=== PATIENT | female | born 1995 | race Caucasian/White ===

== ENCOUNTER 2020-03-14 14:44 | Emergency (ER) | payer OTHER ==
[~2020-03-14] VITALS: Ht 157.5 cm; Wt 53.5 kg
[2020-03-14] MEDS ORDERED: IBUP-1953 PO (15:01)
[2020-03-14 15:14] LABS: *BLOOD, URINE NEGATIVE (NEGATIVE); *CLARITY,URINE SLIGHTLY CLOUDY (CLEAR); *COLOR,URINE YELLOW (YELLOW); *KETONES,URINE 3+ (NEGATIVE); *UROBILINOGEN,URINE 0.2 E.U./dl (NORMAL); LEUKOCYTE ESTERASE ,URINE 1+ (NEGATIVE); NITRITE, URINE NEGATIVE (NEGATIVE); UGLUCOSE NEGATIVE (NEGATIVE)
[2020-03-14 15:16] LABS: *URINE HCG, QUAL NEG (NEGATIVE)
[2020-03-14 15:17] LABS: *BILIRUBIN,URIN 1+ (NEGATIVE)
[2020-03-14] MEDS ORDERED: HYDROCODONE/APAP 5-325MG TABLET PO ONE (15:45)
[2020-03-14] MEDS ORDERED: IV NORMAL SALINE 1000 ML BAG IV ONE (15:45)
[2020-03-14 15:46] LABS: BASOPHILS % (AUTO) 0.5 % (0.0-2.0); EOSINOPHILS % (AUTO) 0.5 % (0.0-7.0); HEMATOCRIT 38.4 % (31.2-41.9); HEMOGLOBIN 13.2 g/dL (10.9-14.3); LYMPHOCYTES # (AUTO) 1.5 K/uL (20.0-40.0); LYMPHOCYTES % (AUTO) 18.2 % (20.5-51.5); MEAN CORPUSCULAR HEMOGLOBIN 31.7 uug (24.7-32.8); MEAN CORPUSCULAR HGB CONC 35 g/dL (32.3-35.6); MEAN CORPUSCULAR VOLUME 91.7 fL (75.5-95.3); MONOCYTES # (AUTO) 0.7 K/uL (2.0-10.0); NEUTROPHILS # (AUTO) 5.9 K/uL (1.8-8.9); NEUTROPHILS % (AUTO) 71.8 % (38.5-71.5); PLATELET COUNT (AUTO) 281 K/uL (179-408); RED BLOOD CELL COUNT(AUTO) 4.18 MIL/uL (3.63-4.92); WHITE BLOOD COUNT (AUTO) 8.2 K/uL (3.8-11.8)
[2020-03-14 15:47] LABS: CARBON DIOXIDE 23 mmol/L (21-32); CHLORIDE 99 mmol/L (98-107); GLUCOSE 79 mg/dL (74-106); POTASSIUM 3.6 mmol/L (3.5-5.1); UREA NITROGEN, BLOOD 11 mg/dL (7-18)
[2020-03-14] MEDS ORDERED: HYDROCODONE/APAP 5-325MG TABLET ONE (16:25)
[2020-03-14] MEDS ORDERED: CEFTRIAXONE 500 MG VIAL IM ONE (17:00)
[2020-03-14] MEDS ORDERED: AZITHROMYCIN 250 MG TABLET PO ONE (17:00)
[2020-03-14] MEDS ORDERED: LIDOCAINE HCL 1% 20 ML VIAL ONE (17:20)
[2020-03-14] MEDS ORDERED: AZITHROMYCIN 250 MG TABLET ONE (17:20)
[2020-03-14] MEDS ORDERED: CEFTRIAXONE 500 MG VIAL ONE (17:20)
--- NOTE | 2020-03-14 17:42 | NUR ---
IV removed. Catheter intact and site benign. Pressure and 4x4 gauze applied to site. No bleeding noted. Patient discharged to home in stable condition & brisk steady gait. Written and verbal after care instructions given. Patient verbalizes understanding of instructions. Stressed follow up with project development coordinator or return to ER for worsening s/s. Copies of tests' results given to patient.
[2020-03-14 17:47] LABS: BACTERIA,URINE MODERATE /HPF (NONE SEEN); SQUAMOUS EPITHELIAL CELL,UR FEW /HPF (NONE SEEN)
[2020-03-17 15:06] LABS: *GC NAA Negative (Negative); *TRIC.VAG. NAA Negative (Negative)
== END 2020-03-14 17:44 | disposition home or self-care (01) ==
LOC: ER 14:44
DX: N39.0 Urinary tract infection, site not specified (principal); N83.291 Other ovarian cyst, right side; R10.31 Right lower quadrant pain; R30.0 Dysuria
CPT/HCPCS: 36415; 76856; 80048; 81001; 84702; 84703; 85025; 87070; 87077; 87086; 87110; 87186; 87210; 87491; 96360; 99285; J0696; J3490; 87075; A4663; J7030; Q0144